=== PATIENT | male | born 1995 | race Caucasian/White ===

== ENCOUNTER 2021-05-21 11:52 | Emergency (ER) | payer OTHER, SELFPAY ==
[2021-05-21 12:26] VITALS: BP 160/88; PULSE 61; RESP 16; TEMP 36.6; O2SAT 100; BMI 29.7
--- NOTE | 2021-05-21 12:29 | DI.RAD.S_ITS ---
PROCEDURE: XR ANKLE RT MIN 3V INDICATIONS: continued pain TECHNIQUE: 3 views of the ankle were acquired. COMPARISON: None. FINDINGS: Bones: No fractures or dislocations. Ankle mortise is normally aligned. No suspicious bony lesions. Soft tissues: No tibiotalar joint effusion. Achilles tendon appears normal. IMPRESSION: No visualized acute fracture or dislocation. However, if clinical concern and/or pain persist, short interval imaging followup in 7-10 days is recommended, as occult injury cannot be definitively excluded. Dictated by: Mally Mcmillan M.D. on 05/21/2021 at 12:54 Approved by: Mally Mcmillan M.D. on 05/21/2021 at 12:54
[2021-05-21 13:32] VITALS: BP 146/88; PULSE 64; RESP 12; TEMP 36.9; O2SAT 98
--- NOTE | 2021-05-21 13:33 | ED.LOWEXIN ---
HPI - Extremity Injury (Lower) General Chief Complaint: Extremity Injury, Lower Stated Complaint: hurt right ankle Time Seen by Provider: 05/21/21 13:26 Source: patient Mode of arrival: Ambulatory Limitations: no limitations History of Present Illness HPI Narrative: Patient is a 26-year-old male who presents with right ankle pain and swelling. He says he 1st injured on May 04 he was on an aircraft [employer] he iced and elevated. He went hiking 2 days ago and has had increased pain since. No numbness or tingling. X-ray done today is negative. Related Data Allergies Allergy/AdvReac Type Severity Reaction Status Date / Time No Known Drug Allergies Allergy Verified 05/21/21 12:28 Review of Systems Review of Systems Narrative: GENERAL: Denies chills,fever HEENT: Denies throat pain RESPIRATORY: Denies dyspnea, cough, wheezing CARDIOVASCULAR: Denies chest pain, palpitations GASTROINTESTINAL: Denies nausea, vomiting MUSCULOSKELETAL: See HPI SKIN: No rash, no laceration, no pruritus NEUROLOGIC: Denies weakness, dizziness, headache, numbness 8 point review of systems is negative except for those stated above and HPI Patient History Social History Smoking Status: Never smoker Smoking Status: Never smoker alcohol intake frequency: 0-2 drinks per day Substance Use Type: does not use Exam Initial Vital Signs Initial Vital Signs: Vital Signs Temperature 97.8 F 05/21/21 12:26 Pulse Rate 61 05/21/21 12:26 Respiratory Rate 16 05/21/21 12:26 Blood Pressure 160/88 H 05/21/21 12:26 Pulse Oximetry 100 05/21/21 12:26 GENERAL: Well-appearing, well-nourished and in no acute distress. CARDIOVASCULAR: peripheral pulses in tact, cap refill <2 sec RESPIRATORY: No respiratory distress, speaks in full sentences without difficulty EXTREMITIES: Normal range of motion, no clubbing or edema. Neurovascularly intact Right lower extremity mild lateral swelling Achilles intact distal pedal pulse intact NEUROLOGICAL: Cranial nerves II through XII grossly intact. Normal gait and speech. SKIN: Warm, dry, no petechiae, no rashes or lesions. Course Orders Ordered: ED Orders 05/21/21 12:29 XR ankle RT min 3V Stat Vital Signs Vital signs: Vital Signs - 8 hr 05/21/21 12:26 05/21/21 13:32 Temperature 97.8 F 98.4 F Pulse Rate 61 64 Respiratory Rate 16 12 Blood Pressure 160/88 H 146/88 H Pulse Oximetry 100 98 MDM - Extremity Injury (Lower) Imaging Data Extremity x-ray #1: Radiologist's Impression: PROCEDURE: XR ANKLE RT MIN 3V INDICATIONS: continued pain TECHNIQUE: 3 views of the ankle were acquired. COMPARISON: None. FINDINGS: Bones: No fractures or dislocations. Ankle mortise is normally aligned. No suspicious bony lesions. Soft tissues: No tibiotalar joint effusion. Achilles tendon appears normal. IMPRESSION: No visualized acute fracture or dislocation. However, if clinical concern and/or pain persist, short interval imaging followup in 7-10 days is recommended, as occult injury cannot be definitively excluded. Dictated by: Mally Mcmillan M.D. on 05/21/2021 at 12:54 Discharge Plan Departure Patient Disposition: Home Clinical Impression: Ankle sprain and strain Instructions: DI for Ankle Sprain Activity Restrictions/Additional Instructions: *You have been diagnosed with right ankle sprain *What to do: At this time ankle sprains can take 4-6 weeks to heal. be sure elevate ice compress. *Continue to take medications as directed Ibuprofen 800 mg every 8 hours if needed for [id number] pain and swelling *Follow up with your primary care provider in 2-3 days *Return to ER if you should have increasing pain, swelling, inability to walk or any new, worsening or concerning symptoms
== END 2021-05-21 13:48 | disposition home or self-care (01) ==
PROVIDERS: Emergency Provider Emergency Medicine
DX: S93.401A Sprain of unspecified ligament of right ankle, initial encounter (principal); X58.XXXA Exposure to other specified factors, initial encounter; Y92.814 Boat as the place of occurrence of the external cause
CPT/HCPCS: 73610; 99281; 99283

== ENCOUNTER → 2022-12-01 08:31 | Outpatient (CLI) | payer OTHER, SELFPAY ==
--- NOTE | 2022-12-01 | DI.US.S_ITS ---
PROCEDURE: US INJECT OR DRAIN JOINT INDICATIONS: Pain in left shoulder TECHNIQUE: The indications, alternatives, benefits, risks, and complications of the procedure were explained to the patient. Written informed consent was obtained and placed in the chart. The patient was placed in an appropriate position on the ultrasound table, and a site was chosen for percutaneous access under ultrasound guidance. Local anesthetic was administered using a 1% lidocaine solution. A hypodermic or spinal needle was then used to access the symptomatic left biceps tendon sheath. Intra-articular location of the needle tip was confirmed by real time ultrasound imaging, followed by steroid administration. The needle was then withdrawn, and a bandage applied to the puncture site. FINDINGS: Biceps tendon sheath injection: Left Medications injected: 0.5 mL of 40 mg/mL Kenalog and 0.5% Ropivacaine mixture. Complications: None. IMPRESSION: Successful ultrasound guided administration of steroid and anaesthetic solution into the proximal left biceps tendon sheath. Dictated by: Wily Lopez M.D. on 12/01/2022 at 11:15 Approved by: Wily Lopez M.D. on 12/01/2022 at 11:18
== END ==
PROVIDERS: Referring Provider Orthopaedic Surgery; Visit Provider Orthopaedic Surgery
DX: M25.512 Pain in left shoulder (principal)
CPT/HCPCS: 20611

== ENCOUNTER → 2023-04-30 14:22 | Outpatient (CLI) | payer OTHER, SELFPAY ==
--- NOTE | 2023-04-30 | DI.US.S_ITS ---
PROCEDURE: US INJECT OR DRAIN JOINT INDICATIONS: PAIN IN LEFT SHOULDER TECHNIQUE: The indications, alternatives, benefits, risks, and complications of the procedure were explained to the patient. Written informed consent was obtained and placed in the chart. The patient was placed in an appropriate position on the fluoroscopy table, and a site was chosen for percutaneous access under ultrasound guidance. Local anesthetic was administered using a 1% lidocaine solution. A hypodermic or spinal needle was then used to access the symptomatic site. The needle tip was confirmed by real time ultrasound imaging, followed by steroid/anesthetics administration. The needle was then withdrawn, and a bandage applied to the puncture site. FINDINGS: Site injected: Left biceps tendon sheath Medications injected: 1.5 mL of 40 mg/mL Kenalog and 0.5% Ropivacaine mixture. Complications: None. IMPRESSION: Successful ultrasound guided administration of steroid and anaesthetic solution into the left biceps tendon. Dictated by: Naina Ruff M.D. on 05/04/2023 at 8:39 Approved by: Naina Ruff M.D. on 05/04/2023 at 8:42
== END ==
PROVIDERS: Referring Provider Orthopaedic Surgery; Visit Provider Orthopaedic Surgery
DX: M25.512 Pain in left shoulder (principal)
CPT/HCPCS: 20611